=== PATIENT | female | born 1965 | race Caucasian/White ===

== ENCOUNTER 2021-10-16 08:03 | Outpatient (CLI) | payer BC ==
[2021-10-16 09:04] LABS: Hemoglobin 15.7 g/dL (12.0-15.5); Mean Corpuscular HGB CONC 34.3 g/dL (32.0-36.0); Mean Corpuscular Hemoglobin 29.3 pg (27.0-33.0); Mean Corpuscular Volume 85.4 fl (81.6-98.3); Mean Platelet Volume 10.1 fl (7.4-10.4); Platelet Count 189 10x3/uL (150-450); RBC Distribution Width 12.6 % (11.5-14.5); Red Blood Cell (RBC) Count 5.36 10x6/uL (3.90-5.03); White Blood Cell (WBC) Count 5.7 10x3/uL (3.5-10.5)
== END 2021-10-16 08:04 | disposition home or self-care (01) ==
LOC: LABBT 08:03
PROVIDERS: ATTEND Oral & Maxillofacial Surgery
DX: Z01.812 Encounter for preprocedural laboratory examination (principal); Z20.822 Contact with and (suspected) exposure to COVID-19
CPT/HCPCS: 85027; U0003; U0005

== ENCOUNTER 2021-10-21 05:52 | Day surgery (SDC) | payer BC ==
[2021-10-19 11:28] VITALS: BMI 37.2
[2021-10-21] MEDS ORDERED: Ophthalmic Irrigation Solution 0 ML ONE (06:41)
[2021-10-21] MEDS ORDERED: Bacitracin Zinc Ointment 30 gm TUBE ONE (06:41)
[2021-10-21] MEDS ORDERED: Lidocaine 1% w/Epinephrine 1:100K 20 ML VIAL ONE (06:41)
[2021-10-21] MEDS ORDERED: Chlorhexidine Gluconate 15 ML UDCUP SSP ONE (06:41)
[2021-10-21] MEDS ORDERED: Chlorhexidine Gluconate 15 ML UDCUP SSP SCH (06:45)
[2021-10-21] MEDS ORDERED: CEFAZOLIN 2 GM in Sodium Chloride 0.9% 100 ML IVPB SCH (06:45)
[2021-10-21] MEDS ORDERED: SUGAMMADEX SODIUM 200 MG/2 ML VIAL ONE (06:55)
[2021-10-21] MEDS ORDERED: fentaNYL Citrate/PF 100 MCG/2 ML SYRINGE ONE (06:55)
[2021-10-21] MEDS ORDERED: Lidocaine 2% Jelly 5 ML TUBE ONE (07:01)
[2021-10-21] MEDS ORDERED: Oxymetazoline HCl 0.05% (30 ML BOT) ONE (07:01)
[2021-10-21] MEDS ORDERED: CEFAZOLIN 2 GM VIAL ONE (07:17)
[2021-10-21] MEDS ORDERED: Sodium Chloride 0.9% 100 ML ONE (07:17)
[2021-10-21] MEDS ORDERED: Lidocaine 1% PF 5 ML VIAL ONE (07:37)
[2021-10-21] MEDS ORDERED: Glycopyrrolate 0.2 MG/ML 5 ML SYRINGE ONE (07:37)
[2021-10-21] MEDS ORDERED: Ondansetron PF 4 MG/2 ML Vial ONE (07:37)
[2021-10-21] MEDS ORDERED: Phenylephrine 10 MG/ML VIAL ONE (07:37)
[2021-10-21] MEDS ORDERED: Ketorolac Tromethamine 30 MG/ML VIAL ONE (07:37)
[2021-10-21] MEDS ORDERED: PROPOFOL 200 MG/20 ML VIAL ONE (07:37)
[2021-10-21] MEDS ORDERED: Rocuronium Bromide 10 MG/ML (10ML VIAL) ONE (07:37)
[2021-10-21] MEDS ORDERED: ePHEDrine 50 MG/ML VIAL ONE (07:37)
[2021-10-21] MEDS ORDERED: PROPOFOL 0 ML ONE (09:30)
== END 2021-10-21 12:15 | disposition home or self-care (01) ==
LOC: SDC 05:52
PROVIDERS: ATTEND Oral & Maxillofacial Surgery
PROC: 0NBR0ZZ Excision of Maxilla, Open Approach (ICD-10-PCS; principal; 2021-10-21)
PROC: 0CDWXZ0 Extraction of Upper Tooth, Single, External Approach (ICD-10-PCS; principal; 2021-10-21)
DX: D16.4 Benign neoplasm of bones of skull and face (principal); L76.81 Other intraoperative complications of skin and subcutaneous tissue; S00.511A Abrasion of lip, initial encounter; K21.9 Gastro-esophageal reflux disease without esophagitis; Z79.899 Other long term (current) drug therapy
CPT/HCPCS: 88305; J0690; J1885; J2370; J2405; J2704; J3490